=== PATIENT | male | born 1980 | race Caucasian/White ===

== ENCOUNTER 2017-07-10 16:47 | Emergency (ER) | payer BC ==
[~2017-07-10] VITALS: Ht 203.2 cm; Wt 141.0 kg
[2017-07-10 16:53] VITALS: BP 165/109; PULSE 108; TEMP 36.4; O2SAT 97; Ht 203.2 cm; Wt 141.0 kg
[2017-07-10] MEDS ORDERED: OXYCODONE HCL IR 5 MG TAB (IMMEDIATE RELEASE) PO STA (17:04)
[2017-07-10] MEDS ORDERED: CITA10TA4 PO (17:14)
[2017-07-10] MEDS ORDERED: LISI-725 PO (17:14)
[2017-07-10] MEDS ORDERED: FEXO1TAB49 PO (17:14)
--- NOTE | 2017-07-10 17:39 | DIAGNOSTIC IMAGING REPORT ---
R FOOT MIN 3 VIEWS ROUTINE CLINICAL HISTORY: Right foot pain. COMPARISON: None. DISCUSSION: No acute fractures are visualized. There is cortical thickening involving the midshaft of the fifth metatarsal suspicious for an old healed fracture. There is a mild hallux valgus deformity. There is no erosive disease. IMPRESSION: 1. No acute fractures 2. Cortical thickening involving the fifth metatarsal, likely secondary to an old fracture or stress-related injury Electronically signed by: Gopal Pena M.D. 07/10/2017 5:38 PM Dictated Date/Time: 07/10/2017 5:36 PM
--- NOTE | 2017-07-10 18:03 | EMERGENCY ROOM VISIT NOTE ---
History First contact with patient: 16:59 Chief Complaint: FOOT PAIN Stated Complaint: R FOOT HURTS History of Present Illness The patient is a 37 year old male who presents to the Emergency Room via private vehicle accompanied by female with complaints of "right foot hurts". The patient states that he woke up this morning with pain in the right distal lateral foot. He states he cannot weight on it. He says his toes are intermittently numb. He is taken aspirin and Motrin today for the pain. He rates his overall pain as an 8/10. He denies any chest pain, shortness of breath, calf pain. There is been no trauma. He did recently begin full active duty back at work from a knee ailment. Review of Systems A complete 6-point Review of Systems was discussed with the patient, with pertinent positives and negatives listed in the History of Present Illness. All remaining Review of Systems questions can be considered negative unless otherwise specified. Past Medical/Surgical History Knee ailment Family History No pertinent. Social History Smoking Status: Former Smoker Patient lives locally. Current/Historical Medications Scheduled Citalopram Hydrobromide (Citalopram Hydrobromide), 10 MG PO DAILY Fexofenadine Hcl (Jess Allergy), 180 MG PO DAILY Lisinopril (Zestril), 20 MG PO BID Scheduled PRN Oxycodone Ir (Roxicodone Ir), 1-2 TAB PO Q4H PRN for Pain Physical Exam Vital Signs Date Time Temp Pulse Resp B/P (MAP) Pulse Ox O2 Delivery O2 Flow Rate FiO2 07/10/17 16:53 36.4 108 20 165/109 97 Room Air Physical Exam VITAL SIGNS - Vital signs and nursing notes were reviewed. Stable. Hypertensive. GENERAL -37-year-old male appearing his stated age who is in no acute distress. Communicates well with provider and answers questions appropriately. SKIN - Without rashes. Skin overlying the right foot is unremarkable. EXTREMITIES - No clubbing or peripheral cyanosis. No pretibial edema present. There is no calf tenderness. There is pinpoint bony tenderness overlying the lateral aspect of the right fifth metatarsal as well as the fourth and fifth digits of the right foot. +5/5 strength noted in UE/LE bilaterally. He is neurovascularly intact in this region. Excellent capillary refill. Medical Decision & Procedures ER Provider Diagnostic Interpretation: R FOOT MIN 3 VIEWS ROUTINE CLINICAL HISTORY: Right foot pain. COMPARISON: None. DISCUSSION: No acute fractures are visualized. There is cortical thickening involving the midshaft of the fifth metatarsal suspicious for an old healed fracture. There is a mild hallux valgus deformity. There is no erosive disease. IMPRESSION: 1. No acute fractures 2. Cortical thickening involving the fifth metatarsal, likely secondary to an old fracture or stress-related injury Electronically signed by: Gopal Pena M.D. 07/10/2017 5:38 PM Dictated Date/Time: 07/10/2017 5:36 PM Medications Administered Medications (Trade) Dose Ordered Sig/Jerald Route Start Time Stop Time Status Last Admin Dose Admin Oxycodone HCl (Roxicodone Immediate Rel Tab) 10 mg NOW STAT PO 07/10/17 17:04 07/10/17 17:06 DC 07/10/17 17:41 10 MG Oxycodone HCl (Roxicodone Immediate Rel 5MG Home Pack) 1 homepack UD STAT PO 07/10/17 18:12 07/10/17 18:14 DC 07/10/17 18:12 1 HOMEPACK Medical Decision Patient was seen and evaluated as above. He was given oxycodone 10 mg for his pain. The right foot does exhibit bony tenderness therefore x-rays were obtained. Results as above. I question if he is experiencing a stress fracture secondary to his presentation and x-ray findings. He'll be given a postop shoe and is to use his crutches to be nonweightbearing. He is to follow up regarding today's injury with the family doctor or orthopedic individual. He 'll be given oxycodone for pain management at home. There are no red flags notified and the [place] drug monitoring system. At this time there is no evidence of infection, neurovascular compromise or DVT. He was educated upon management, educated upon worrisome symptoms which to return, had questions or purulent discharge, and was discharged home in good condition. In the evaluation and treatment of this patient, the following differential diagnoses were considered: Lisfranc Fracture, Talus Fracture, Tarsal Fracture, Foot Sprain. Impression Primary Impression: Foot pain Departure Information Dispostion Home / Self-Care Condition GOOD Prescriptions Oxycodone Ir (Roxicodone Ir) 5 Mg Tab 1-2 TAB PO Q4H Y for Pain, #20 TAB For Initial Treatment Prov: Quinton Vincent PA-C 07/10/17 Referrals Kathia Koenig D.O. (PCP) Patient Instructions My [facility] Additional Instructions You have been treated in the Emergency Department for a R foot pain. You have received pain medicine in the emergency department which impairs your ability to operate a vehicle. It is illegal for you to drive after receiving these medicines. You have been prescribed OXY IR to be used for pain control. This is a narcotic medication. You cannot drive or consume alcohol while on this medicine. This medicine should only be used for pain that cannot be controlled with over-the- counter pain medicines. For pain control, you can use the following [id number] medicines (if >12 yo): - Regular strength (325mg/tab) Tylenol (acetaminophen) 2 tabs every 4-6 hours as needed. Do not exceed 12 tablets in a 24 hour period. Avoid taking more than 3 grams (3000 mg) of Tylenol per day. This includes any other sources of acetaminophen you may take on a regular basis. - Regular strength (200 mg/tab) Advil (ibuprofen) 1-2 tabs every 4-6 hours as needed. Do not exceed a dose of 3200 mg per day. If this is a recent injury (<24 hrs), ice can be applied to the area of pain for the first 3 days to help decrease pain and inflammation. You have been provided the number for an Orthopaedic Surgeon. You should call this number as soon as possible to establish a follow-up visit from today's Emergency Department visit. Keep the foot brace/splint in place until cleared by Orthopedics. Use the crutches you have been provided to keep weight off of the foot until weight bearing is tolerable. Return to the Emergency Department if your current symptoms worsen despite treatment course outlined above, or if you develop any of the following symptoms : intractable pain despite aforementioned treatment course or new onset of numbness or tingling of the foot.
--- NOTE | 2017-07-10 18:05 | EMERGENCY ROOM VISIT NOTE ---
ED Visit Note First contact with patient: 16:59 I have personally seen and evaluated the patient with the physician health assistant. I agree with the diagnostic/management decisions and have personally been involved in these decisions and agree with the diagnosis.
[2017-07-10] MEDS ORDERED: OXYCODONE IR HOME PACK PO STA (18:12)
[2017-07-10] MEDS ORDERED: OXYC1TAB3 PO (18:22)
== END 2017-07-10 18:33 | disposition home or self-care (01) ==
LOC: C.EDB 16:49 → C.EDD 18:33
DX: M79.671 Pain in right foot (principal); Z87.891 Personal history of nicotine dependence; M20.11 Hallux valgus (acquired), right foot